=== PATIENT | male | born 2000 | race Caucasian/White ===

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

== ENCOUNTER → 2021-05-28 | Outpatient (CLI) | payer MEDICAID ==
[2021-05-28 19:37] LABS: ALT 63 U/L (10-49); AST 43 U/L (14-35); African American GFR (CKD) 112.2 (60.0-200.0); Albumin/Globulin Ratio 2.18 (1.60-3.17); Alkaline Phosphatase 81 U/L (41-126); BUN/Creat Ratio 25.45 Ratio (12.00-20.00); C Reactive Protein 1.1 mg/dL (0.0-0.8); Calcium 9.6 mg/dL (8.7-10.3); Carbon Dioxide 25.1 mmol/L (21.6-31.8); Chloride 107 mmol/L (96-109); GGT <15 U/L (0-73); Globulin 2.2 g/dL (1.6-3.3); Glucose 111 mg/dL (70-110); Non-African American GFR(CKD) 96.8 (60.0-200.0); Potassium 5.3 mmol/L (3.5-5.5); Sodium 140 mmol/L (135-145); Total Bilirubin 0.5 mg/dL (0.3-1.2)
== END | disposition home or self-care (01) ==
LOC: LABWHC1 05-26 14:33
PROVIDERS: ATTEND Nurse Practitioner Family
DX: R94.5 Abnormal results of liver function studies (principal)
CPT/HCPCS: 36415; 80053; 82977; 86140

== ENCOUNTER → 2023-04-18 | Outpatient (CLI) | payer MEDICAID ==
[2023-04-18 20:21] LABS: T4, Free (Free Thyroxine) 1.74 ng/dL (0.80-1.80)
[2023-04-18 22:19] LABS: Hepatitis B Surface AB- Quant 21.9 mIU/mL
== END | disposition home or self-care (01) ==
LOC: LABWHC1 15:55
PROVIDERS: ATTEND Orthopaedic Surgery
DX: Z01.84 Encounter for antibody response examination (principal)
CPT/HCPCS: 36415; 82784; 84439; 84443; 86480; 86706; 87086